=== PATIENT | female | born 1970 | race Caucasian/White ===

== ENCOUNTER → 2017-12-14 | Outpatient (CLI) | payer BC | END | disposition home or self-care (01) | LOC: RAH 15:12 | PROVIDERS: ATTEND Physical Medicine & Rehabilitation | DX: M54.2 Cervicalgia (principal); M54.5 Low back pain | CPT/HCPCS: 72040; 72100 ==

== ENCOUNTER → 2017-12-19 | Outpatient (CLI) | payer BC | END | disposition home or self-care (01) | LOC: RAH 09:33 | PROVIDERS: ATTEND Internal Medicine | DX: Z12.31 Encounter for screening mammogram for malignant neoplasm of breast (principal) | CPT/HCPCS: 77067 ==

== ENCOUNTER → 2018-01-10 | Outpatient (CLI) | payer BC, SELFPAY | END | disposition home or self-care (01) | LOC: RAH 15:21 | PROVIDERS: ATTEND Physical Medicine & Rehabilitation | DX: M47.22 Other spondylosis with radiculopathy, cervical region (principal); M50.13 Cervical disc disorder with radiculopathy, cervicothoracic region; M48.02 Spinal stenosis, cervical region; M25.78 Osteophyte, vertebrae; M47.897 Other spondylosis, lumbosacral region | CPT/HCPCS: 72141; 72148 ==

== ENCOUNTER → 2018-06-26 | Outpatient (CLI) | payer BC | END | disposition home or self-care (01) | LOC: RAH 09:01 | PROVIDERS: ATTEND Internal Medicine | DX: K21.9 Gastro-esophageal reflux disease without esophagitis (principal); K76.0 Fatty (change of) liver, not elsewhere classified; K44.9 Diaphragmatic hernia without obstruction or gangrene | CPT/HCPCS: 74240 ==

== ENCOUNTER → 2018-07-11 | Outpatient (CLI) | payer BC | END | disposition home or self-care (01) | LOC: RAH 08:17 | PROVIDERS: ATTEND Internal Medicine | DX: R94.5 Abnormal results of liver function studies (principal); Z90.49 Acquired absence of other specified parts of digestive tract | CPT/HCPCS: 76705 ==

== ENCOUNTER → 2020-03-05 | Outpatient (CLI) | payer MEDICARE | END | disposition home or self-care (01) | LOC: RAH 08:43 | PROVIDERS: ATTEND Internal Medicine | DX: Z12.31 Encounter for screening mammogram for malignant neoplasm of breast (principal); N64.89 Other specified disorders of breast | CPT/HCPCS: 77067 ==

== ENCOUNTER → 2021-02-17 | Outpatient (CLI) | payer MEDICARE, OTHER | END | disposition home or self-care (01) | LOC: RAH 10:07 | PROVIDERS: ATTEND Internal Medicine | DX: N28.1 Cyst of kidney, acquired (principal) | CPT/HCPCS: 74176 ==

== ENCOUNTER → 2021-06-03 | Outpatient (CLI) | payer MEDICARE, OTHER | END | disposition home or self-care (01) | LOC: RAH 14:46 | PROVIDERS: ATTEND Obstetrics & Gynecology | DX: Z12.31 Encounter for screening mammogram for malignant neoplasm of breast (principal) | CPT/HCPCS: 77067 ==

== ENCOUNTER → 2022-04-26 | Outpatient (CLI) | payer MEDICARE, OTHER | END | disposition home or self-care (01) | LOC: RAH 04-14 08:51 | PROVIDERS: ATTEND Physical Medicine & Rehabilitation | DX: M75.111 Incomplete rotator cuff tear or rupture of right shoulder, not specified as traumatic (principal); M25.511 Pain in right shoulder | CPT/HCPCS: 73221 ==

== ENCOUNTER → 2022-06-15 | Outpatient (CLI) | payer MEDICARE | END | disposition home or self-care (01) | LOC: RAH 15:42 | PROVIDERS: ATTEND Obstetrics & Gynecology | DX: Z12.31 Encounter for screening mammogram for malignant neoplasm of breast (principal) | CPT/HCPCS: 77067 ==

== ENCOUNTER → 2023-06-22 | Outpatient (CLI) | payer OTHER | END | disposition home or self-care (01) | LOC: RAH 09:58 | PROVIDERS: ATTEND Obstetrics & Gynecology | DX: Z12.31 Encounter for screening mammogram for malignant neoplasm of breast (principal) | CPT/HCPCS: 77067 ==

== ENCOUNTER → 2024-04-20 | Outpatient (CLI) | payer OTHER ==
[2024-04-20 15:31] LABS: ALBUMIN 3.7 g/dL (3.5-5.0); BILIRUBIN,TOTAL 0.5 mg/dL (0.2-1.0); CREATININE 0.6 mg/dL (0.5-1.0); POTASSIUM 3.7 mmol/L (3.5-5.1)
== END | disposition home or self-care (01) ==
LOC: LAB 13:11
PROVIDERS: ATTEND Student in an Organized Health Care Education/Training Program
DX: R07.9 Chest pain, unspecified (principal)
CPT/HCPCS: 36415; 80053

== ENCOUNTER → 2024-04-26 | Outpatient (CLI) | payer OTHER ==
[~2024-04-26] MED LIST: IOHEXOL 350 MG/ML 100ML INFUS..BTL IV ONE; metoPROLOL tartRATE 1 MG/ML 5ML VIAL IV ONE
--- NOTE | 2024-04-26 13:58 | HMCIMG ---
CT CARDIAC ANGIO W/CONT. CCTA REASON: CHEST PAIN COMPARISON: None TECHNIQUE: Images are obtained through the heart in the axial plane before and during bolus IV contrast infusion, 100 cc Omnipaque 350. 2-D and 3-D multiplanar reconstruction images were then performed. The injection had to be repeated once due to motion artifact on the first sequence, total contrast volume was 200 cc. FINDINGS: This dictation is for the noncardiac findings only. Cardiac and coronary artery findings are reported separately. Visualized portions of the lungs are clear. There is normal-appearing pulmonary interstitium. There is no hilar or mediastinal lymphadenopathy. Chest wall structures appear unremarkable. IMPRESSION: 1. Unremarkable noncardiac portions of CT cardiac angiography.
--- NOTE | 2024-04-29 17:28 | CARDIOLOGY ---
RAD REPORT: [facility] CT ANGIO RADIOLOGY REPORT: CORONARY CT ANGIOGRAPHY DATE: Apr 29, 2024 QUALITY: Excellent CLINICAL HISTORY AND INDICATION: [chest pain, family h/o CAD ] TECHNIQUE: After obtaining a preliminary video game engineer image, contrast imaging performed on an avolutionon [id number] scanner. A dedicated, limited window, coronary imaging protocol was used, with single breath-hold, retrospective ECG gating, and automated arrhythmia rejection. 100 cc of low osmolar contrast agent: Omnipaque 350 was delivered via a 18-gauge IV catheter in the right antecubital fossa, using a power injector and followed by 60 cc of normal saline bolus as a chaser. Collimated images were reformatted at 0.5 mm intervals, and sent to an offline independent workstation for interpretation, using 3D anatomic reconstructions: Curved multiplanar reconstructions, maximum intensity projections, and multiplanar imaging. No metoprolol was administered prior to scanning due to low baseline heart rate. 0.4 mg SL nitroglycerin was given. CORONARY ARTERY DESCRIPTIONS: The coronary arteries arise in normal position. Left main coronary artery: Normal caliber vessel that bifurcates into the LAD and LCx. No stenosis. Left anterior descending coronary artery: Normal caliber vessel and gives rise to diagonal and septal branches. No stenosis. Left circumflex coronary artery: Normal caliber, nondominant and gives rise to a large OM branch. No stenosis. Right coronary artery: Large, dominant vessel giving rise to the PL and PDA branches. No stenosis. CAD-RADs: 0, absence of CAD. Thoracic Aorta: Normal diameter. Vicki Mezt MD Cardiovascular Disease [facility] VICKI METZ MD Apr 29, 2024 17:28
== END | disposition home or self-care (01) ==
LOC: RAH 08:13
PROVIDERS: ATTEND Student in an Organized Health Care Education/Training Program
DX: R07.9 Chest pain, unspecified (principal)
CPT/HCPCS: 75574; J3490; Q9967

== ENCOUNTER → 2024-07-06 | Outpatient (CLI) | payer OTHER ==
--- NOTE | 2024-07-06 16:35 | HMCIMG ---
US TRANSVAGINAL NON-OB HISTORY: No additional history given. COMPARISON: None TECHNIQUE: Transabdominal pelvic ultrasound study was performed. FINDINGS: The uterus measures 8.2 x 4.1 x 6.6 cm. The right ovary measures 2.4 x 1.2 x 2.2 cm. The left ovary measures 1.7 x 1.3 x 1.8 cm. Flow is seen in both ovaries. Endometrial thickness is 3 mm. No free fluid is seen in the cul-de-sac. IMPRESSION: 1. No adnexal mass is seen.
== END | disposition home or self-care (01) ==
LOC: RAH 14:51
PROVIDERS: ATTEND Obstetrics & Gynecology
DX: R10.2 Pelvic and perineal pain (principal)
CPT/HCPCS: 76830

== ENCOUNTER 2024-09-19 07:28 | Day surgery (SDC) | payer OTHER ==
[2024-09-17 14:09] LABS: BASOPHILS # (AUTO) 0.05 K/uL (0.00-0.20); BASOPHILS % (AUTO) 0.7 % (0.0-5.0); EOSINOPHILS # (AUTO) 0.14 K/uL (0.00-0.70); HEMATOCRIT 41.6 % (36-48); IMMATURE GRANULOCYTE ABSOLUTE 0.01 K/uL (0-1); LYMPHOCYTES # (AUTO) 1.5 K/uL (1.0-4.8); LYMPHOCYTES % (AUTO) 21.4 % (21.0-51.0); MEAN CORPUSCULAR HEMOGLOBIN 30.1 pg (27.0-33.0); MEAN CORPUSCULAR HGB CONC 34.9 g/dL (32.0-36.0); MEAN CORPUSCULAR VOLUME 86.5 fL (79-99); MONOCYTES # (AUTO) 0.5 K/uL (0.1-1.0); MONOCYTES % (AUTO) 7.3 % (3.0-13.0); NEUTROPHILS # (AUTO) 4.7 K/uL (1.8-7.7); NEUTROPHILS % (AUTO) 68.5 % (40.0-77.0); PLATELET COUNT (AUTO) 306 K/uL (130-400); RED BLOOD CELL COUNT(AUTO) 4.81 MIL/uL (4.00-5.50); RED CELL DISTRIBUTION WIDTH 11.3 % (11.0-15.5); WHITE BLOOD COUNT (AUTO) 6.9 K/uL (4.8-10.8)
[2024-09-17 14:12] LABS: CREATININE 0.6 mg/dL (0.5-1.0); POTASSIUM 3.8 mmol/L (3.5-5.1)
[2024-09-17 15:13] VITALS: BP 137/84; PULSE 74; RESP 13; TEMP 98.1
--- NOTE | 2024-09-18 11:28 | NUR ---
GLP-1 PATIENT STATED THAT "SHE GOT INJECTED AT [facility] ON 09/15/24 WITH A GLP-1 DOES NOT RECALL NAME OF GLP-1" REPORTED TO DR. DUFFY ABOUT INJECTION. STATED TO PROCEED AND FLAG THE CHART.
[~2024-09-19] VITALS: Ht 149.9 cm; Wt 72.7 kg
[2024-09-19] VITALS (20 sets, daily range): BP systolic 123–156; BP diastolic 62–91; PULSE 57–97; RESP 12–20; TEMP 97.1–97.8
[~2024-09-19 07:28] MED LIST changes: +CARV12.511 PO; -IOHEXOL 350 MG/ML 100ML INFUS..BTL IV ONE; +LOSA50TA64 PO; +OMEP20CA12 PO; +PROG100C11 PO; +VITAD50000 PO; +[UNRECOGNIZED DRUG - CODE]; -metoPROLOL tartRATE 1 MG/ML 5ML VIAL IV ONE
[2024-09-19] MEDS ORDERED: FERRIC SUBSULFATE ML ONE (08:03)
[2024-09-19] MEDS ORDERED: LIDOCAINE PF 100MG/5ML (2%) SYRINGE 5ML ONE (08:39)
[2024-09-19] MEDS ORDERED: dexaMETHasone SOD PHOSPHATE 10MG/ML 1ML VIAL ONE (08:39)
[2024-09-19] MEDS ORDERED: rocuRONium bROMide 10MG/1ML 5ML VL ONE (08:40)
[2024-09-19] MEDS ORDERED: proPOFol 10 MG/ML 20ML VIAL IV ONE (08:40)
[2024-09-19] MEDS ORDERED: ondanSETRON 4MG INJ ONE (08:40)
[2024-09-19] MEDS ORDERED: GLYCOPYRROLATE 0.2 MG/ML 5 ML VIAL ONE (08:40)
[2024-09-19] MEDS ORDERED: SUCCINYLCHOLINE CHLORIDE 20 MG/ML 10 ML VIAL ONE (08:40)
[2024-09-19] MEDS ORDERED: NEOSTIGMINE METHYLSULFATE 1MG/ML IV ONE (08:40)
[2024-09-19] MEDS ORDERED: FENTanyl CITRate PF 50 MCG/1 ML 2ML VIAL ONE ×2 (08:40→08:59)
[2024-09-19] MEDS ORDERED: MIDAZOLAM HCL 1 MG/ML 2ML VIAL ONE (08:41)
--- NOTE | 2024-09-19 09:50 | OP ---
Operative Note: DATE OF PROCEDURE: 09/19/24 SURGEON: BALBINA LOZANO MD INSTRUCTIONAL TECHNOLOGY DIRECTOR: [na] ANESTHESIA: [General] ANESTHESIOLOGIST/INSPECTOR INSULATION: [Sergio MERRILL] PREOPERATIVE DIAGNOSIS: [postmenopausal bleeding, endometrial polyps, cervical stenosis] POSTOPERATIVE DIAGNOSIS: [same plus small fundal submucous fibroid on the left] SYNOPSIS: [na] PROCEDURE: [Hysteroscopy D&C] ESTIMATED BLOOD LOSS: [minimal] INDICATIONS: [na] DESCRIPTION OF PROCEDURE: [The patient and her were visited in the holding area and the operation stated in plain Maltese and she had no additional questions and was ready to proceed. She was taken to the operating room and placed under general anesthesia and prepped and draped in the usual sterile fash ion in the universal stirrups and her bladder was drained. A time out was taken to confirm the patient's identity, her allergies, the planned operation and the fact that no antibiotics were administered. A right angle was placed inthe vagina and the anterior lip of the cervix grasped with a single tooth tenaculum, uterus sounded 8-9 cm and the cervix was gradually dilated to about 1 cm and the hysteroscope with sterile saline distension media was used to visualize the cavity, photographs of polyps were taken and the scope removed, all surfaces werecuretted until gritty and the polyp forceps were used, the cavity was checked and the process was repeated until the surfaces were all clean. A very small submucous fibroid was noted in the left cornu. A post photo was not taken because the camera would not take the picture. The scope, single tooth tenaculum and right angle were removed, there was very scant bleeding at the conclusion of the procedure, the patient tolerated the procedure well, sponge, lap and needle counts were correct and the patientwas taken to the recovery room in stable condition. Her was notified of the findings and her stability. balbina lozano md facog facs] BALBINA LOZANO MD Sep 19, 2024 09:50
[2024-09-19] MEDS: hydroMORPHone 1 MG INJ ONE (10:38)
[2024-09-19] MEDS: ketOROlac 30MG VIAL (30MG/ML) ONE (11:28)
--- NOTE | 2024-09-19 12:15 | NUR ---
Full and complete discharge instructions given to Patient and Family both verbally and in writing. Explained Surgical ACTUARIAL INTERN procedure precautions and follow up. Scant amount of serous fluid to OB pad. Tolerated fluids and urinated large amount in bathroom. All questions answered. PIV removed with catheter tip intact. Mom at bedside appearing supportive. W/C to POV with Mom to home
== END 2024-09-19 12:20 | disposition home or self-care (01) ==
LOC: DAH 07:28
PROVIDERS: ATTEND Obstetrics & Gynecology
DX: N93.8 Other specified abnormal uterine and vaginal bleeding (principal); N95.0 Postmenopausal bleeding; N84.0 Polyp of corpus uteri; M48.02 Spinal stenosis, cervical region; D25.0 Submucous leiomyoma of uterus; N88.2 Stricture and stenosis of cervix uteri; Z88.5 Allergy status to narcotic agent; Z88.8 Allergy status to other drugs, medicaments and biological substances; Z90.710 Acquired absence of both cervix and uterus; Z90.49 Acquired absence of other specified parts of digestive tract; Z98.890 Other specified postprocedural states; Z79.899 Other long term (current) drug therapy
CPT/HCPCS: 80048; 85025; 36415 ×2; 58558; 84703; 82948; 88305; A6260; J1885; A4663; J7030; A4351; A4355; J3010 ×2; J1171; J1100; J0330; J3490 ×2; J2003; J2250; J2704; J2405; J2710; A4215; A4213; A4222; A4221; A4216; A4223 ×2